=== PATIENT | male | born 1990 | race Caucasian/White ===

== ENCOUNTER → 2025-04-24 | Outpatient (REF) | payer OTHER ==
[2025-04-24 11:04] LABS: SEMEN APPEARANCE OPAQUE (OPAQUE); SEMEN VISCOSITY LIQUID (LIQUID); SEMEN VOLUME 1.1 ml (2.0-5.0); WBC CONCENTRATION <=1 M/ml (<=1 M/ml)
== END ==
LOC: M SMT 10:47
PROVIDERS: ATTEND Urology
DX: Z30.2 Encounter for sterilization (principal)